=== PATIENT | female | born 1975 | race Caucasian/White ===

== ENCOUNTER → 2021-05-10 02:15 | Outpatient (CLI) | payer OTHER, SELFPAY ==
[2021-05-10 19:54] LABS: SARS-CoV-2 RNA PCR Negative
== END ==
PROVIDERS: PCP Nurse Practitioner Family; Visit Provider Student in an Organized Health Care Education/Training Program
DX: Z01.812 Encounter for preprocedural laboratory examination (principal); Z20.822 Contact with and (suspected) exposure to COVID-19
CPT/HCPCS: C9803; U0003; U0005

== ENCOUNTER 2021-05-11 09:02 | Outpatient (CLI) | payer OTHER, SELFPAY ==
--- NOTE | 2021-05-11 09:30 | ECG_ITS ---
Measurements Intervals [place] Rate: 68 P: 42 PA: 150 QRS: 16 QRSD: 102 T: 51 QT: 391 QTc: 418 Interpretive Statements SINUS RHYTHM LOW QRS VOLTAGE IN LIMB LEADS POOR R WAVE PROGRESSION, ANTERIOR LEADS BORDERLINE ECG Electronically Signed On 05-11-2021 9:45:47 CDT by Cricket Lei D.O.
== END 2021-05-11 09:03 | disposition home or self-care (01) ==
LOC: ANHSURGERY 09:11
PROVIDERS: PCP Nurse Practitioner Family; Visit Provider Student in an Organized Health Care Education/Training Program
DX: Z01.810 Encounter for preprocedural cardiovascular examination (principal); D21.9 Benign neoplasm of connective and other soft tissue, unspecified
CPT/HCPCS: 36415; 85027; 86850; 86880; 86900; 86901; 86902; 93005

== ENCOUNTER 2021-05-13 02:02 | Day surgery (SDC) | payer OTHER, SELFPAY ==
[2021-05-10 11:19] VITALS: BMI 30.6
[2021-05-11 10:30] LABS: Hematocrit 39.4 % (37.0-47.0); Hemoglobin 12.2 g/dL (12.0-15.0); Mean Corpuscular Hemoglobin 26.2 pg (26-34); Mean Corpuscular Volume 84.5 fl (80-100); Mean Platelet Volume 12.5 fl (7.4-10.4); Platelet Count Result 313 k/mm3 (150-375); Red Blood Count 4.66 M/mm3 (4.2-5.4); Red Cell Distribution Width 15.3 % (11.5-14.5); White Blood Count 8.6 K/mm3 (4.5-10.0)
--- NOTE | 2021-05-12 08:06 | PM.IMHP ---
H&P: HPI History of Present Illness Date/Time: 05/12/21 08:06 Chief Complaint: Abnormal uterine bleeding Narrative: 45 yo who presents for robotic TLH/BS for abnormal uterine bleeding. Pt is status post endometrial ablation and hormonal therapy with refractory uterine bleeding. Of note, patient has a history of a DVT. Review of Systems Cardiovascular: Cardiovascular: Denies chest pain, Denies leg edema, Denies palpitations, Denies dyspnea and Denies dyspnea on exertion Respiratory: Respiratory: Denies cough, Denies dyspnea and Denies dyspnea on exertion Gastrointestinal: Gastrointestinal: Denies abdominal pain, Denies constipation, Denies diarrhea, Denies nausea and Denies vomiting Genitourinary: Genitourinary: Denies hematuria, Denies urinary frequency, Denies dysuria, Denies pelvic pain, Denies urinary incontinence and Denies vaginal discharge Neurologic: Reports system reviewed and no additional complaints, except as documented Psychiatric: Psychiatric: Reports no additional psychiatric complaints Endocrine: Endocrine: Denies palpitations PMFSH Social History Social History Smoking status: Never smoker Alcohol intake: current Spiritual care concerns: No Meds Home Medications and Allergies Home Medications Medication Instructions Recorded Confirmed Type atorvastatin 5 mg PO HS 05/10/21 05/10/21 History semaglutide [Ozempic] 1 mg SUBCUT WEEKLY 05/10/21 05/10/21 History sertraline 50 mg PO HS 05/10/21 05/10/21 History Allergies Allergy/AdvReac Type Severity Reaction Status Date / Time No Known Allergies Allergy Verified 05/10/21 11:10 Exam Const: General: no acute distress Eyes: EOM: EOMs intact bilaterally Neck: Neck: supple Thyroid: thyroid normal Chest: Breast/axilla inspection: normal inspection of the breasts Breast/axilla palpation: normal palpation of the breasts, normal palpation of the axillae and no axillary lymphadenopathy Resp: Effort & Inspection: normal respiratory effort Auscultation: clear to auscultation bilaterally Cardio: Rate: regular rate Rhythm: regular rhythm GI: Inspection: non-distended GI Palp: Yes Soft to palpation, No Tenderness to palpation present (GI) and No Guarding due to palpation present (GI) Auscultation: normal bowel sounds : General: Yes bladder normal to palpation External Female Exam: normal external appearance Speculum Exam - Vagina: normal vaginal discharge and No vaginal bleeding Speculum Exam - Cervix: normal appearance of the cervix and nontender Bimanual exam- vagina & uterus: No bladder normal to palpation, No Cervical tenderness present and enlarged Bimanual Exam- Adnexa, other: normal adnexae Skin: General skin exam: normal color and no rashes or lesions noted Neuro: Cognition (Neuro): normal cognition Speech: normal speech Extrem: General: normal to inspection and no edema Psych: Mental Status: mental status grossly normal Affect: normal affect Assessment and Plan Assessment and plan (1) Abnormal uterine bleeding (AUB): Code(s): N93.9 - Abnormal uterine and vaginal bleeding, unspecified Status: Acute Assessment and Plan: pt with chronic history of AUB s/p hormonal therapy and endometrial ablation pelvic US showed anteverted uterus measuring 10.8x6x5 cm there is a posterior 2x2 cm fibroid plan for robotic TLH/BS (2) History of DVT (deep vein thrombosis): Code(s): Z86.718 - Personal history of other venous thrombosis and embolism Status: Acute Assessment and Plan: pt with h/o DVT plan for SCDs intraop plan for lovenox x 4 wks on discharge for PPX
[2021-05-13] VITALS (11 sets, daily range): BP systolic 94–121; BP diastolic 49–76; PULSE 54–88; RESP 14–20; TEMP 36.7–36.8; O2SAT 95–99
--- NOTE | 2021-05-13 06:58 | WPDANESEPPF ---
Anes - Initial Pre Proc Eval Procedure: Operation Date: 05/13/21 07:30 Proposed Procedures p Robotic Assisted Total Vaginal Hysterectomy, Bilateral Salpingectomy - Kai Paul MD Date/Time: 05/13/21 06:58 Surgeon: Kai Paul MD Pre Op Diagnosis: pain,enlarge uterus, fibroids Patient Data Age: 45 Gender: F Height: 1.7 m Weight: 88.6 kg Allergies Allergy/AdvReac Type Severity Reaction Status Date / Time No Known Allergies Allergy Verified 05/13/21 06:16 Home Medications Medication Instructions Recorded Confirmed Type atorvastatin 5 mg PO HS 05/10/21 05/10/21 History semaglutide [Ozempic] 1 mg SUBCUT WEEKLY 05/10/21 05/10/21 History sertraline 50 mg PO HS 05/10/21 05/10/21 History Laboratory Tests 05/11/21 05/11/21 09:20 09:20 WBC 8.6 K/mm3 K/mm3 (4.5-10.0) RBC 4.66 M/mm3 M/mm3 (4.2-5.4) Hgb 12.2 g/dL g/dL (12.0-15.0) Hct 39.4 % % (37.0-47.0) MCV 84.5 fl fl (80-100) MCH 26.2 pg pg (26-34) MCHC 31.0 g/dl L g/dl (32-36) RDW 15.3 % H % (11.5-14.5) Plt Count 313 k/mm3 k/mm3 (150-375) MPV 12.5 fl H fl (7.4-10.4) Blood Type AB Positive Antibody Screen Positive Antibody Identification Anti-E Antigen Identification E Antigen - NEGATIVE GRANT, Poly Interpret Negative Enhanced Crossmatch See Detail Patient hx anesthesia problems: none Family hx anesthesia problems: other (sister sz difficult to awaken) PMFSH Social History Social History Smoking status: Never smoker Alcohol intake: current Living arrangements: with family Spiritual care concerns: No Anes - Eval Final PreProcedure Day of Procedure 05/13/21 06:58 Informed Consent: The patient's anesthetic plan and its attendant risks and benefits were discussed with the patient/family/POA. Questions were solicited and answers provided to the satisfaction of the patient/family/POA.
[2021-05-13] MEDS: ACETAMINOPHEN 500 MG TABLET 1000 MG PO (07:00)
--- NOTE | 2021-05-13 07:06 | WPDHPUPDATE1 ---
History and Physical Update Update Date/Time: 05/13/21 07:06 History and Physical has been reviewed, including an updated exam of the patient. There are NO changes in the patient's condition. Risks, benefits, and alternatives have been discussed and questions answered. Patient agrees to proceed with procedure.
[2021-05-13] MEDS: LACTATED RINGERS 1,000 ML 30 ML IV CONT ×2 (07:10→09:51)
[2021-05-13] MEDS: KETOROLAC 15 MG/ML VIAL (*BKC) IV PUSH (07:15)
[2021-05-13 07:16] LABS: Glucose Point of Care 139 mg/dl (65-105)
[2021-05-13] MEDS: ceFAZolin 2 GM/D5W 50 ML 2 GM/50 ML BAG IVPB (07:30)
[2021-05-13 07:31] LABS: Anion Gap 7 mmol/L (8-16); Blood Urea Nitrogen 18 mg/dL (7-17); Calcium 9.4 mg/dL (8.4-10.2); Carbon Dioxide 23 mmol/L (22-30); Chloride 108 mmol/L (98-107); Estimated CRCL calculation 89 ml/min; Estimated Glomerular Filt Rate > 60; Glucose 142 mg/dL (65-110); Potassium 4.2 mmol/L (3.4-5.0); Sodium 138 mmol/L (137-145)
--- NOTE | 2021-05-13 09:35 | W.PM.PROC2 ---
Procedure Note - Detailed Date of Procedure 05/13/21 Pre-op Diagnosis pain,enlarge uterus, fibroids Post-op Diagnosis same Procedure Performed robotic assisted total laparoscopic hysterectomy and bilateral salpingectomy Surgeon Kai Paul MD Anesthesia general Indications pelvic pain, abnormal uterine bleeding Findings enlarged uterus, posterior subserosal fibroid, previous tubal clips Description of Procedure After the patient was appropriately consented she was taken to the operating room where she was transferred to the table in a dorsal supine position. General anesthesia was then induced with endotracheal intubation. The patient was transferred to a dorsal lithotomy position using adjustable yellow-fin stirrups. Her position was adjusted for appropriate support of her lower back and lower extremities. The patient was prepped and draped. A transurethral raphael catheter was place. The cervix was sequentially dilated and a ANJU uterine manipulator placed in typical fashion about a 3.5 MAYELIN ring. Gloves were changed. After confirmation of a functioning orogastric tube, lidocaine was injected at Mari's point in the LUQ and a 5mm incision was made. A 5mm Optiview trocar was then inserted into the abdominal cavity under direct visualization and done so without complication. The abdomen was then insufflated with approximately 2-3L of CO2 establishing a pneumoperitoneum and the patient was placed in Trendelenburg position. Just above the umbilicus in the midline, a 8 mm incision made after injection of lidocaine and a 8 mm bladeless trocar advanced into the abdominal cavity under direct visualization without incident. We subsequently placed two robotic ports in a similar fashion, one in the left mid-quadrant and one in the right, 10cm lateral to the midline port. The robot was then docked. The left round ligament was divided and the pararectal and paravesicle spaces developed, identifying the course of the ureter. The left fallopian tube was identified out to the fimbrae. The fallopian tube was transected along the inferior mesosalpinx to the insertion at the uterine body. The posterior aspect of the broad ligament was then skeletonized down to the level of the internal cervical os, mobilizing the ureter laterally. The bladder flap was then created sharply. The ipsilateral uterine artery was skeletonized, bipolar cauterized and transected. A similar procedure was performed on the contralateral side, developing the pelvic spaces, coagulating and dividing the IP away from the ureter, completing the bladder flap, and skeletonizing, ligating, and dividing the uterine artery on this side. We ensured the vaginal pneumo-occluder balloon was insufflated and made a circumferential colpotomy using monopolar current. The uterus, cervix, bilateral tubes and ovaries were then delivered transvaginally. I then re-approximated the colpotomy with a running #1 PDO Quill suture in 2 layers. Following this dissection, the abdomen and pelvis were copiously irrigated and all surgical sites found to be hemostatic. Skin sites were reapproximated with 4-0 Vicryl in a subcuticular fashion. Steri-Strips were placed. The patient tolerated the procedure well. Sponge, needle and instrument counts were correct x 2 and the patient was taken to recovery in stable condition. Ancef was given for antimicrobial prophylaxis. The patient had SCD's on for VTE prophylaxis during the entire procedure. Pt will be given Lovenox prior to discharge and for 4 weeks post-op. Estimated Blood Loss 50 Urine Output 150 Drains No Packing No Pathology yes (uterus, cervix, bilateral fallopain tube) Complications No immediate complications Condition stable Disposition PACU
[2021-05-13 10:01] LABS: Glucose Point of Care 177 mg/dl (65-105)
[2021-05-13] MEDS: ENOXAPARIN 40 MG/0.4 ML SYRINGE SUB-Q (10:29)
--- NOTE | 2021-05-13 10:42 | SUR.PHASEI ---
CATHETER PULLED AT 1040. 50ML OUT. PER DR MARCANO
[2021-05-13] MEDS: ONDANSETRON INJ 4 MG/2 ML VIAL IV PUSH (10:49)
[2021-05-13] MEDS: diphenhydrAMINE HCl INJ 50 MG/ML VIAL 25 MG IV PUSH (11:19)
[2021-05-13] MEDS: SCOPOLAMINE 1.5 MG PATCH TRANSDERM (11:22)
--- NOTE | 2021-05-14 10:22 | WPDANESPN ---
Anes - Prog Note Post-Op Date/Time: 05/14/21 10:22 Cardiovascular status: normal Respiratory status: normal Airway patency: baseline Mental status: baseline Post-Op hydration status: normal Vital Signs: Last Vital Signs Temp 36.8 C 05/13/21 09:51 Pulse 54 L 05/13/21 12:20 Resp 16 05/13/21 12:20 BP 105/59 L 05/13/21 12:20 Pulse Ox 96 05/13/21 10:50 Pain Score (VAS): 3 Laboratory Tests 05/11/21 09:20 05/13/21 06:49 05/11/21 09:20 Blood Type AB Positive Antibody Screen Positive Antibody Identification Anti-E Antigen Identification E Antigen - NEGATIVE GRANT, Poly Interpret Negative Enhanced Crossmatch See Detail Post-procedural complaints: none Patient Feedback: Patient satisfied with anesthetic care.
== END 2021-05-13 12:23 | disposition home or self-care (01) ==
PROVIDERS: PCP Nurse Practitioner Family; Visit Provider Student in an Organized Health Care Education/Training Program
PROC: (CPT 58571; principal; 2021-05-13 07:30)
DX: R10.2 Pelvic and perineal pain (principal); N93.9 Abnormal uterine and vaginal bleeding, unspecified; N72 Inflammatory disease of cervix uteri; N80.3 Endometriosis of pelvic peritoneum; D25.2 Subserosal leiomyoma of uterus; Z86.718 Personal history of other venous thrombosis and embolism
CPT/HCPCS: 58571; S2900; 36415; 80048; 82948; 85027; 86850; 86880; 86900; 86901; 86902; 86922; 88307; 93005; A9270; C9803; J0330; J0690; J1100; J1200; J1650; J1885; J2250; J2405; J2704; J2710; J3010; J7030; J7120; U0003; U0005

== ENCOUNTER 2023-07-12 01:38 | Day surgery (SDC) | payer OTHER, SELFPAY ==
[2023-07-10 14:39] VITALS: BMI 30.5
--- NOTE | 2023-07-10 14:44 | PC.NURSE ---
Report to the Outpatient Waiting Room, entrance under the green pavilion located off [facility], at time 6:00 on date 07/12/23. Planned Procedure Time: 7:30. Time changes happen often and if your time is changed the preop area will call you the afternoon before. - You and your visitor will be asked to self-screen and do not enter if you have any COVID symptoms. - A mask is optional within the hospital at this time. Patients may have clear liquids (water, carbonated beverages, clear teas, apple juice) until 3 hours prior to surgery (4:30) with a maximum of 20 ounces. - No food from midnight until time of surgery Take the following medications with a SIP of water the morning of surgery: PAIN PILL IF NEEDED DO NOT STOP ANY OF YOUR OTHER PRESCRIPTION MEDICATIONS PRIOR TO SURGERY ?EXCEPT THE FOLLOWING Medications to discontinue per physician: N/A Date to take last dose: N/A Please no make-up, nail jordanian, hairspray, perfume, deodorant, or body powder the day of surgery. No jewelry (including any body piercings) or valuables the day of surgery, leave them at home. Please take a shower or bath the night before, or the morning of, surgery with an antibacterial soap. Wear comfortable, loose fitting clothing. - Jewelry must be removed prior to entering the operating room. Rings and piercings that are not removed may be cut off. - The hospital will not accept responsibility for valuables. - Please leave all valuables, including medications, at home the day of surgery. If you are going home after surgery, a licensed skip load driver must drive you home. - NO public transportation without another adult if you receive anesthesia. - We recommend that an adult stay with you for 24 hours following discharge. - We also recommend that you do not drive, make important decision, drink alcoholic beverages, or take any drugs that were not prescribed by your health care provider for at least 24 hours after your discharge time. Follow any additional instructions given to you from your surgeon. If you or anyone in your household have experienced Covid symptoms in the past week, please notify your surgeon or the nurse liaison at the phone number below for possible testing. Telephone instructions given to PT - JOAO CULP and asked if any additional questions and then verbalized understanding. Patient advised to call surgeon office or pre surgery nurse liaison [phone] if any additional questions.
--- NOTE | 2023-07-10 16:06 | PM.IMHP ---
H&P: HPI History of Present Illness Date/Time: 07/10/23 16:06 Chief Complaint: Pelvic pain Narrative: 47-year-old female status post hysterectomy and bilateral salpingectomy with a complex right ovarian cyst that appears to be a torsion. She was seen in the ER and HS HS and CT showed a 5.4cm ovarian cyst. Ultrasound in our office what looks to be a torsion. She is admitted for laparoscopic right salpingo-oophorectomy. Risks and benefits reviewed in great detail [facility] Social History Social History Smoking status: Never smoker Alcohol intake: current Alcohol use details: RARE Substance use: never Substance use type: does not use Living arrangements: with family Spiritual care concerns: No Meds Home Medications and Allergies Home Medications Medication Instructions Recorded Confirmed Type atorvastatin 10 mg tablet 5 mg PO HS 05/10/21 07/10/23 History sertraline 50 mg tablet 75 mg PO HS 05/10/21 07/10/23 History hydrocodone 5 mg-acetaminophen 325 1 tablet PO Q6H PRN Pain 07/10/23 07/10/23 History mg tablet metformin 1,000 mg tablet 500 mg PO HS 07/10/23 07/10/23 History tirzepatide 10 mg/0.5 mL 10 mg subcut WEEKLY 07/10/23 07/10/23 History subcutaneous pen injector (Mounjaro) Allergies Allergy/AdvReac Type Severity Reaction Status Date / Time No Known Allergies Allergy Verified 07/10/23 14:37 Exam Const: General: cooperative, healthy appearing, comfortable and average body habitus Nutritional Appearance: average body habitus Orientation/consciousness: oriented to person, oriented to place and oriented to time HENMT: Head: normal to inspection Resp: Effort & Inspection: normal respiratory effort Cardio: Rate: regular rate Rhythm: regular rhythm Heart sounds: S1 normal heart sound present and S2 normal heart sound present GI: Inspection: normal to inspection : External Female Exam: normal external appearance Speculum Exam - Vagina: normal appearance of the vagina Speculum Exam - Cervix: Cervix absent Bimanual exam- vagina & uterus: uterus absent Bimanual Exam- Adnexa, other: Adnexal mass present on the right tender Assessment and Plan Assessment and plan (1) Complex cyst of right ovary: Code(s): N83.291 - Other ovarian cyst, right side Status: Acute Plan Laparoscopic right oophorectomy
[2023-07-12] VITALS (9 sets, daily range): BP systolic 97–117; BP diastolic 57–75; PULSE 90–124; RESP 16–20; TEMP 36.1–36.9; O2SAT 92–100
--- NOTE | 2023-07-12 05:58 | ECG_ITS ---
Measurements Intervals [place] Rate: 88 P: 38 MA: 156 QRS: 0 QRSD: 104 T: 50 QT: 365 QTc: 442 Interpretive Statements SINUS RHYTHM WITH SINUS ARRHYTHMIA LOW QRS VOLTAGE IN LIMB LEADS BORDERLINE R WAVE PROGRESSION, ANTERIOR LEADS BORDERLINE ECG COMPARED TO ECG 05/11/2021 09:28:02 SINUS ARRHYTHMIA NOW PRESENT Electronically Signed On 07-12-2023 8:19:25 CDT by Cricket Lei D.O.
--- NOTE | 2023-07-12 06:29 | WPDHPUPDATE1 ---
History and Physical Update Update Date/Time: 07/12/23 06:29 History and Physical has been reviewed, including an updated exam of the patient. There are NO changes in the patient's condition. Risks, benefits, and alternatives have been discussed and questions answered. Patient agrees to proceed with procedure.
[2023-07-12] MEDS: LACTATED RINGERS 1,000 ML 30 ML IV CONT ×3 (06:30→09:40)
[2023-07-12 07:01] LABS: Anion Gap 6 mmol/L (8-16); Blood Urea Nitrogen 10 mg/dL (7-17); Calcium 8.9 mg/dL (8.4-10.2); Carbon Dioxide 27 mmol/L (22-30); Chloride 103 mmol/L (98-107); Estimated CRCL calculation 87 ml/min; Estimated Glomerular Filt Rate > 60; Glucose 134 mg/dL (65-110); Potassium 3.7 mmol/L (3.4-5.0); Sodium 136 mmol/L (137-145)
[2023-07-12] MEDS: ACETAMINOPHEN 500 MG TABLET 1000 MG PO (07:07)
[2023-07-12] MEDS: KETOROLAC 15 MG/ML VIAL (*BKC) IV PUSH (07:07)
--- NOTE | 2023-07-12 07:08 | P.PNAN_ITS ---
Anes - Initial Pre Proc Eval Procedure: Operation Date: 07/12/23 07:30 Proposed Procedures p Diagnostic Laparoscopy, Right Salpingo Oophorectomy - Pradeep Tran MD Date/Time: 07/12/23 07:08 Surgeon: Pradeep Tran MD Pre Op Diagnosis: right ovarian torsion Patient Data Age: 47 Gender: F Height: 1.7 m Weight: 88.5 kg Allergies Allergy/AdvReac Type Severity Reaction Status Date / Time No Known Allergies Allergy Verified 07/10/23 14:37 Home Medications Medication Instructions Recorded Confirmed Type atorvastatin 10 mg tablet 5 mg PO HS 05/10/21 07/10/23 History sertraline 50 mg tablet 75 mg PO HS 05/10/21 07/10/23 History hydrocodone 5 mg-acetaminophen 325 1 tablet PO Q6H PRN Pain 07/10/23 07/10/23 History mg tablet metformin 1,000 mg tablet 500 mg PO HS 07/10/23 07/10/23 History tirzepatide 10 mg/0.5 mL 10 mg subcut WEEKLY 07/10/23 07/10/23 History subcutaneous pen injector (Mounjaro) hydrocodone 5 mg-acetaminophen 325 1 tablet PO Q4H PRN pain #20 tabs 07/12/23 Rx mg tablet Laboratory Tests 07/12/23 06:27 Sodium 136 L mmol/L (137-145) Potassium 3.7 mmol/L (3.4-5.0) Chloride 103 mmol/L (98-107) Carbon Dioxide 27 mmol/L (22-30) Anion Gap 6 L mmol/L (8-16) BUN 10 D mg/dL (7-17) Creatinine 0.80 mg/dL (0.7-1.0) Estim Creat Clear Calc 87 ml/min Estimated GFR > 60 (59 - ) Glucose 134 H mg/dL (65-110) Calcium 8.9 mg/dL (8.4-10.2) Patient hx anesthesia problems: none Family hx anesthesia problems: none Results Review: All pre-operative results and documents have been reviewed as part of the pre- operative evaluation. [facility] Social History Social History Smoking status: Never smoker Alcohol intake: current Alcohol use details: RARE Substance use: never Substance use type: does not use Living arrangements: with family Spiritual care concerns: No Anes - Eval Final PreProcedure Day of Procedure 07/12/23 07:08 Patient weight: overweight Heart: regular rate and rhythm Lungs: clear to auscultation Airway: Mallampati scale class II Neurological: alert and oriented Last oral intake: >/= 8 hours ASA classification: III Emergent: no Anesthetic plan: proceed Anesthesia type and monitoring: general ETT and standard monitoring Results Review: All pre-operative results and documents have been reviewed as part of the pre- operative evaluation. Informed Consent: The patient's anesthetic plan and its attendant risks and benefits were discussed with the patient/family/POA. Questions were solicited and answers provided to the satisfaction of the patient/family/POA.
[2023-07-12] MEDS: SCOPOLAMINE 1.5 MG PATCH TRANSDERM (07:17)
--- NOTE | 2023-07-12 08:14 | P.OP_ITS ---
Procedure Note - Detailed Date of Procedure 07/12/23 Pre-op Diagnosis right ovarian torsion Post-op Diagnosis Same Procedure Performed Laparoscopic right oophorectomy and evacuation hematoma in the peritoneal cavity Surgeon Pradeep Tran MD Anesthesia General Indications This is a 47-year-old female with severe pelvic pain and complex right ovarian cyst was suspected as torsion. Findings Large clot hematoma in the cul-de-sac and peritoneal cavity with a torsion right ovary. Normal-appearing left ovary. Uterus and cervix were absent Description of Procedure Patient was prepped draped in normal sterile fashion placed in dorsal position. Under excellent general trach anesthesia sponge stick was placed in the vagina and the bladder drained of clear urine. The weighted speculum was removed the gloves were changed. A supraumbilical incision made the Veress needle passed in the abdomen. Abdomen filled with CO2 gas [id number]. The 5mm trocar advanced under direct visualization assuring no injury. Patient placed in Trendelenburg and a suprapubic incision made. The 5mm trocar advanced under direct visualization assuring no injury large hematoma absent uterus was present the right the left ovary appeared within normal limits. Suction of clot was removed until and gentle dissection was under sent undertaken. A right lower quadrant incision made the 10mm trocar advanced under direct visualization assuring no injury. Using sharp and occasional blunt dissection the cul-de-sac was cleared and after about 150cc of clot seen in the cul-de-sac was remove the torsion of the right o vary was noted. The infundibulopelvic structure was skeletonized clamped with the LigaSure. The specimen was placed in an Endo-Catch removed through the right lower quadrant. Irrigation undertaken to clear blood loss estimated 50cc. Hemostasis was assured and the instruments removed patient went to recovery in satisfactory condition after closing incisions with 4-0 Monocryl and glue blood loss 50cc. All sponge, needle, instrument counts were correct. There were no immediate complications noted Estimated Blood Loss 50 Drains No Packing No Pathology Yes Complications No immediate complications Condition Stable Disposition PACU
[2023-07-12 08:36] LABS: Glucose Point of Care 153 mg/dl (65-105)
== END 2023-07-12 10:34 | disposition home or self-care (01) ==
PROVIDERS: Anesthesiology; PCP Nurse Practitioner; Visit Provider Obstetrics & Gynecology
PROC: (CPT 49320; principal; 2023-07-12 07:30)
DX: N83.511 Torsion of right ovary and ovarian pedicle (principal); Z79.85 Long-term (current) use of injectable non-insulin antidiabetic drugs; Z79.84 Long term (current) use of oral hypoglycemic drugs
CPT/HCPCS: 58661; 36415; 80048; 82948; 86850; 86880; 86900; 86901; 86922; 88305; 93005; A9270; J1100; J1170; J1885; J2250; J2371; J2405; J2704; J3010; J7030; J7120